=== PATIENT | male | born 1975 | race Caucasian/White ===

== ENCOUNTER 2018-03-02 06:33 | Emergency (ER) | payer OTHER ==
[2018-03-02 06:44] VITALS: BP 156/108
--- NOTE | 2018-03-02 07:01 | EDPHY ---
H & P Stated Complaint: RECTAL BLEEDING STARTING THIS AM Time Seen by Provider: 03/02/18 06:49 HPI/ROS: CHIEF COMPLAINT: Bright red rectal bleeding HISTORY OF PRESENT ILLNESS: The patient is a 42-year-old man with a history of autism who is brought by his dad to the emergency department for rectal bleeding. He has a history of hemorrhoids but dad states that the bleeding is heavier today than it has been in the past. Has now stopped. It was red. Not mixed with stool. No vomiting. No pain. No trauma. No fevers. Severity: Moderate Modifying factors: Resolving with time REVIEW OF SYSTEMS: Constitutional: denies: chills, fever, recent illness, recent injury EENTM: denies: blurred vision, double vision, nose congestion Respiratory: denies: cough, shortness of breath Cardiac: denies: chest pain, irregular heart rate, lightheadedness, palpitations Gastrointestinal/Abdominal: denies: abdominal pain, diarrhea, nausea, vomiting, blood streaked stools Genitourinary: See HPI denies: dysuria, frequency, hematuria, pain Musculoskeletal: denies: joint pain, muscle pain Skin: denies: lesions, rash, jaundice, bruising Neurological: denies: headache, numbness, paresthesia, tingling, dizziness, weakness Hematologic/Lymphatic: denies: blood clots, easy bleeding, easy bruising Immunologic/allergic: denies: HIV/AIDS, transplant 10 systems reviewed and negative except as noted EXAM: GENERAL: Well-appearing, well-nourished and in no acute distress. HEAD: Atraumatic, normocephalic. EYES: Pupils equal round and reactive to light, extraocular movements intact, sclera anicteric, conjunctiva are normal. ENT: TMs normal, nares patent, oropharynx clear without exudates. Moist mucous membranes. NECK: Normal range of motion, supple without lymphadenopathy or JVD. LUNGS: Breath sounds clear to auscultation bilaterally and equal. No wheezes rales or rhonchi. HEART: Regular rate and rhythm without murmurs, rubs or gallops. ABDOMEN: Soft, nontender, normoactive bowel sounds. No guarding, no rebound. No masses appreciated. : Rectal scope performed, internal hemorrhoid visualized now with fresh scab , no bleeding above this. No bleeding mixed with stool. BACK: No CVA tenderness, no spinal tenderness, step-offs or deformities EXTREMITIES: Normal range of motion, no pitting or edema. No clubbing or cyanosis. NEUROLOGICAL: Cranial nerves II through XII grossly intact. Normal speech, normal gait. 5/5 strength, normal movement in all extremities, normal sensation , normal reflexes PSYCH: Normal mood, normal affect. SKIN: Warm, dry, normal turgor, no visible rashes or lesions. Source: Patient, Family - Personal History Current Tetanus/Diphtheria Vaccine: Unsure - Medical/Surgical History Hx Asthma: No Hx Chronic Respiratory Disease: No Hx Diabetes: No Hx Cardiac Disease: No Hx Renal Disease: No Hx Cirrhosis: No Hx Alcoholism: No Hx HIV/AIDS: No Hx Splenectomy or Spleen Trauma: No Other PMH: AUTISM, OCD, HYPOTHYROID, HEARLING LOSS, VISION IMPAIR, STRABISMUS, LIPOMAS, HEMORRHOIDS - Social History Smoking Status: Never smoked Alcohol Use: Sober Drug Use: None Constitutional: Initial Vital Signs Temperature (C) 36.9 C 03/02/18 06:41 Heart Rate 106 H 03/02/18 06:41 Respiratory Rate 20 03/02/18 06:41 Blood Pressure 156/108 H 03/02/18 06:41 O2 Sat (%) 93 03/02/18 06:41 O2 Delivery Mode Room Air Allergies/Adverse Reactions: No Known Allergies Allergy (Unverified 03/02/18 06:38) Home Medications: Medication Instructions Recorded Acidophilus 03/02/18 Analpram Hc 1% Cream 03/02/18 Depakote 03/02/18 Fiber Gummies 03/02/18 Fish Oil 1,000 mg Softgel 03/02/18 Hydrocortisone Acetate [Anucort-Hc] 25 mg RC BID #14 supp.rect 03/02/18 Levothyroxine 03/02/18 Meclizine HCl 12.5 mg (*) 03/02/18 Melatonin 3 MG (*) 03/02/18 Miralax 17 gm (*) 03/02/18 Pantoprazole Sodium 03/02/18 Risperdal 0.5mg (*) 03/02/18 SIMVASTATIN 03/02/18 Viactiv Soft Chew 03/02/18 Vitamin B Complex 03/02/18 Vitamin D3 03/02/18 Medical Decision Making ED Course/Re-evaluation: Patient has an internal hemorrhoid that is easily visible. It is no longer bleeding. I recommended hydrocortisone suppositories and will follow up with his primary doctor. He has had trouble with hemorrhoids before and there familiar with treatment. Patient does not have any lightheadedness symptoms of significant blood loss. His vital signs are normal in the room. Differential Diagnosis: Partial list of the Differential diagnosis considered include but were not limited to; internal hemorrhoid, external hemorrhoid and although unlikely based on the history and physical exam, I also considered diverticulitis, upper GI bleed, perforation, ischemia, volvulus. Departure - Departure Disposition: Home, Routine, Self-Care Clinical Impression: Internal hemorrhoid, bleeding Condition: Fair Instructions: Hemorrhoids (ED), Rectal Bleeding (ED) Referrals: Estrada Daniels DO [Doctor of Osteopathy] - 2-3 days, if not improved Prescriptions: Hydrocortisone Acetate [Anucort-Hc] 25 mg RC BID #14 supp.rect
== END 2018-03-02 07:13 | disposition home or self-care (01) ==
DX: Z87.19 Personal history of other diseases of the digestive system (principal); F84.0 Autistic disorder; K64.8 Other hemorrhoids